=== PATIENT | female | born 1975 | race Caucasian/White ===

== ENCOUNTER 2020-02-19 23:11 | Emergency (ER) | payer SELFPAY ==
--- NOTE | 2020-02-19 23:51 | PC.NURSE ---
PT CALLED FOR TRIAGE BY THIS NURSE AND PT STATES TO THIS NURSE THAT SHE IS LEAVING, BECAUSE SHE NO LONGER WANTS TO BE SEEN.
== END 2020-02-19 23:51 | disposition left against medical advice (07) ==
DX: Z53.21 Procedure and treatment not carried out due to patient leaving prior to being seen by health care provider (principal)
CPT/HCPCS: 99199